=== PATIENT | female | born 1965 | race Caucasian/White ===

== ENCOUNTER → 2018-03-05 08:17 | Outpatient (CLI) | payer OTHER, SELFPAY ==
[2018-03-05 09:30] LABS: Alanine Aminotransferase 22 IU/L (9-52); Albumin 4.3 g/dL (3.5-5.0); Albumin Globulin Ratio 1.5 (1.0-2.8); Alkaline Phosphatase 44 U/L (38-126); Aspartate Aminotransferase 24 IU/L (14-36); BUN Creatinine Ratio 16.7 (6-22); Bilirubin Total 0.8 mg/dL (0.2-1.3); Blood Urea Nitrogen 10 mg/dL (7-17); Carbon Dioxide 30 mmol/L (22-32); Chloride 105 mmol/L (98-107); Cholesterol 197 mg/dL (140-199); Estimated Glomerular Filt Rate > 60.0 mL/min (>60); Globulin 2.8 g/dL (1.7-4.1); Glucose 83 mg/dL (70-100); HDL Cholesterol 74 mg/dL (40-60); HEMOLYSIS < 15 (0-50); LDL Cholesterol Calculated 113 mg/dL (<100); Potassium 4.3 mmol/L (3.4-5.1); Sodium 142 mmol/L (137-145); Total Protein 7.1 g/dL (6.3-8.2); Triglycerides 49 mg/dL (35-150)
[2018-03-05 09:43] LABS: Thyroid Stimulating Hormone 1.64 uIU/mL (0.47-4.68)
== END ==
PROVIDERS: Visit Provider Physician Assistant
DX: R41.840 Attention and concentration deficit (principal); Z82.49 Family history of ischemic heart disease and other diseases of the circulatory system; Z13.220 Encounter for screening for lipoid disorders; Z13.6 Encounter for screening for cardiovascular disorders
CPT/HCPCS: 36415; 80053; 80061; 84443

== ENCOUNTER → 2018-04-11 15:14 | Outpatient (CLI) | payer OTHER, SELFPAY ==
--- NOTE | 2018-04-11 | DI.MG.S_ITS ---
BILATERAL DIGITAL SCREENING MAMMOGRAM 3D/2D WITH CAD: 04/11/2018 CLINICAL: Routine screening. Comparison is made to exams dated: 09/29/2013 mammogram, 10/12/2011 mammogram, and 09/23/2007 mammogram - [facility]. The tissue of both breasts is heterogeneously dense. This may lower the sensitivity of mammography. Current study was also evaluated with a Computer Aided Detection (CAD) system. No significant masses, calcifications, or other findings are seen in either breast. There has been no significant interval change. IMPRESSION: NEGATIVE There is no mammographic evidence of malignancy. A 1 year screening mammogram is recommended. This exam was interpreted at Station ID: [id number]. NOTE: For mammograms, a report in lay terms will be sent to the patient. Approximately 15% of breast malignancies will not be visualized mammographically. In the management of a palpable breast mass, a negative mammogram must not discourage biopsy of a clinically suspicious lesion. Electronically Signed By: Joon mayo/jessika:04/14/2018 01:42:54 letter sent: Normal Exam ACR BI-RADS Category 1: Negative [id number]
== END ==
PROVIDERS: Family Provider Obstetrics & Gynecology; PCP Physician Assistant; Visit Provider Physician Assistant
DX: Z12.31 Encounter for screening mammogram for malignant neoplasm of breast (principal)
CPT/HCPCS: 77063; 77067

== ENCOUNTER 2018-11-05 13:14 | Emergency (ER) | payer OTHER, SELFPAY ==
[2018-11-05 13:19] VITALS: BP 132/89; PULSE 75; RESP 18; TEMP 36.3; O2SAT 99
--- NOTE | 2018-11-05 13:27 | DI.RAD.S_ITS ---
PROCEDURE: XR CHEST 1V INDICATIONS: chest pain TECHNIQUE: One view of the chest was acquired. COMPARISON: None. FINDINGS: Surgical changes and devices: None. Lungs and pleura: Lungs are clear. No pleural effusions or pneumothorax. Mediastinum: Mediastinal contours appear normal. Heart size is normal. Bones and chest wall: No suspicious bony lesions. Overlying soft tissues appear unremarkable. IMPRESSION: 1. No acute cardiopulmonary disease. Dictated by: Naresh Samano M.D. on 11/05/2018 at 13:54 Approved by: Naresh Samano M.D. on 11/05/2018 at 13:54
[2018-11-05 13:58] LABS: Add Manual Diff / Slide Review NO; Basophils Absolute Auto 0 /uL (0-100); Basophils Percent Auto 0.8 % (0-2); Eosinophils Absolute Auto 200 /uL (0-450); Hematocrit 42.8 % (36-46); Hemoglobin 14.1 g/dL (12.0-16.0); Lymphocytes Absolute Auto 1300 /uL (1100-4500); Lymphocytes Percent Auto 22.5 % (25-40); Mean Corpuscular HGB Conc 32.8 % (30-36); Mean Corpuscular Hemoglobin 29.3 PG (26-34); Mean Corpuscular Volume 89.2 fL (80-100); Monocytes Absolute Auto 400 /uL (0-900); Monocytes Percent Auto 6.4 % (3-14); Neutrophils Absolute Auto 3900 /uL (1500-7000); Neutrophils Percent Auto 67.3 % (50-75); Platelet Count 251 X10^3/uL (150-400); White Blood Cell Count 5.8 X10^3/uL (4.5-11.0)
[2018-11-05 14:06] LABS: Prothrombin Time 11.9 SECONDS (10.1-12.7)
[2018-11-05 14:08] LABS: PTT Partial Thromboplastin Tim 30 SECONDS (26.4-36.2)
[2018-11-05 14:12] LABS: Alanine Aminotransferase 13 IU/L (9-52); Albumin 4.9 g/dL (3.5-5.0); Albumin Globulin Ratio 1.5 (1.0-2.8); Alkaline Phosphatase 50 U/L (38-126); Aspartate Aminotransferase 25 IU/L (14-36); BUN Creatinine Ratio 18.3 (6-22); Bilirubin Total 0.8 mg/dL (0.2-1.3); Blood Urea Nitrogen 11 mg/dL (7-17); Calcium 9.9 mg/dL (8.4-10.2); Carbon Dioxide 29 mmol/L (22-32); Chloride 101 mmol/L (98-107); Creatine Kinase 61 U/L (30-135); Estimated Glomerular Filt Rate > 60.0 mL/min (>60); Globulin 3.3 g/dL (1.7-4.1); Glucose 105 mg/dL (70-100); HEMOLYSIS < 15 (0-50); Lipase 71 U/L (23-300); Potassium 3.9 mmol/L (3.4-5.1); Sodium 139 mmol/L (137-145); Total Protein 8.2 g/dL (6.3-8.2)
[2018-11-05 14:24] LABS: Troponin I < 0.012 ng/mL (0.01-0.034)
--- NOTE | 2018-11-05 16:52 | ED_ITS ---
HPI - Chest Pain General Chief Complaint: Chest Pain Stated Complaint: CHEST PAIN WARM SENSATION ABD PRESSURE BREAST AREA Time Seen by Provider: 11/05/18 13:30 Source: patient Mode of arrival: ambulatory Limitations: no limitations History of Present Illness HPI narrative: Patient complains of upper abdominal pressure that radiates into her low chest. She states that she thinks she has a hiatal hernia, which star radha after she did some heavy lifting some years ago. Patient states she feels this of the hernia has gotten worse. Patient indicates that the hernia is on her abdominal wall, and on clarification, is not aware of a herniation into her chest cavity. Patient denies any dyspnea, but does state that sometimes it feels as though she cannot take a full breath in, due to fullness in her lower chest and upper abdomen. Patient denies any cough or fever recently. She is active and denies any dyspnea or chest discomfort with exercise. She denies any nausea or diaphoresis. No lightheadedness. No other complaints at this time. Related Data Home Medications Medication Instructions Recorded Confirmed acetaminophen 325 mg tablet 325 mg PO PRN PRN 03/04/18 11/05/18 ibuprofen 200 mg tablet 200 mg PO PRN PRN 03/04/18 11/05/18 dextroamphetamine-amphetamine ER See Rx Instructions PO QAM 07/18/18 07/18/18 10 mg 24hr capsule,extend release doxycycline hyclate 100 mg PO BID 11/05/18 11/05/18 spironolactone 50 mg PO DAILY 11/05/18 11/05/18 tetracycline 500 mg PO BID 11/05/18 11/05/18 Allergies Allergy/AdvReac Type Severity Reaction Status Date / Time Sulfa (Sulfonamide Allergy Severe THROAT Verified 07/18/18 14:58 Antibiotics) SWELLING [SULFA (SULFONAMIDE ANTIBIOTICS)] Penicillins [PENICILLINS] Allergy Mild RASH Verified 07/18/18 14:58 Review of Systems Constitutional Denies chills, Denies fever(s), Denies lethargy and Denies weakness Eyes Denies change in vision, Denies eye discharge, Denies irritation and Denies loss of vision ENT Ears, Nose, Mouth, and Throat: Denies change in voice, Denies neck pain and Denies sore throat Cardiovascular Denies chest pain, Denies irregular heart rhythm, Denies lightheadedness, Denies palpitations, Denies dyspnea, Denies dyspnea on exertion and Denies orthopnea Comments: Chest pressure Respiratory Denies cough, Denies dyspnea, Denies dyspnea on exertion and Denies wheezing Gastrointestinal Gastrointestinal: Denies abdominal pain, Denies change in bowel habits, Denies diarrhea, Denies nausea and Denies vomiting Comments: Fullness and discomfort Genitourinary Denies hematuria, Denies flank pain, Denies urinary incontinence and Denies urinary urgency Musculoskeletal Denies neck pain Integumentary/Breasts Denies pruritus, Denies erythema, Denies rash and Denies wounds Neurologic Denies confusion, Denies loss of vision and Denies weakness Psychiatric Denies anxiety, Denies confusion, Denies depression, Denies homicidal ideation and Denies suicidal ideation Endocrine Denies palpitations Hematologic/Lymphatic Denies easy bruising Allergic/Immunologic Denies wheezing [facility] Medical History Allergic rhinitis (Chronic) Sciatica (Chronic) Compression fracture of body of thoracic vertebra (Resolved 1992) GERD (gastroesophageal reflux disease) (Resolved) History of ganglion cyst (Resolved) Shoulder pain (Resolved ~11/2014) Surgical History History of surgical removal of ganglion cyst (Resolved) Hx of shoulder surgery (Resolved 03/2015) Hx of tonsillectomy (Resolved) Social History Smoking Status: Former smoker Tobacco: How many years used: 10 second hand exposure: No alcohol intake: current (wine occasionally.) substance use type: does not use Social History Smoking Status: Former smoker Tobacco: How many years used: 10 second hand exposure: No alcohol intake: current (wine occasionally.) substance use type: does not use Exam Initial Vital Signs Initial Vital Signs: Vital Signs Temperature 97.3 F L 11/05/18 13:19 Pulse Rate 75 11/05/18 13:19 Respiratory Rate 18 11/05/18 13:19 Blood Pressure 132/89 11/05/18 13:19 Pulse Oximetry 99 11/05/18 13:19 Const General: cooperative and well developed Nutritional Appearance: well nourished Orientation: alert, awake, oriented x3 and not confused HENLA Head: normocephalic and atraumatic Ears: external ears normal Nose: external nose normal and No nasal discharge Face and sinus: face symmetric and No dry mucous membranes Mouth: oral mucosae normal and moist mucous membranes Teeth and gingiva: dentition normal Eyes General: appearance normal, both eyes and all related structures Eyelids: eyelids normal Conjunctivae: conjunctivae normal Sclera: sclerae normal Pupils: PERRL EOM: EOM intact bilaterally Neck Neck: normal visual inspection, trachea midline, No lymphadenopathy, No midline deformity and No JVD Lymphatic: No lymphedema Chest Chest: normal inspection of the chest Resp Effort & Inspection: normal respiratory effort, able to speak in complete sentences, no respiratory distress and no use of accessory muscles Auscultation: clear to auscultation bilaterally, no rales, no rhonchi and no wheezes Cardio Rate: regular rate Rhythm: regular rhythm Heart Sounds: no click, no gallops, no murmurs and no rubs Pulses: normal peripheral pulses GI Inspection: non-distended Palpation: soft, no hepatosplenomegaly, No guarding, No pulsatile mass and te nder (Mild, over ventral abdominal hernia in epigastric region) Auscultation: normal bowel sounds Other: Patient has a moderately sized, fully reducible ventral abdominal hernia in the midline epigastric area. Distension in the hernia area completely resolves with supine position. Back/Spine/Pelvis Back: No CVA tenderness Cervical Spine: cervical ROM normal and No pain with cervical ROM Thoracic/Lumbar Spine: thoracic and lumbar spine normal to inspection Skin General: no rashes or lesions noted, No jaundice and No petechiae Neuro General: alert, oriented x3, gait normal and no focal motor deficits Speech: speech normal Extrem General: full ROM, no clubbing, cyanosis or edema, no pedal edema and no calf tenderness Psych Appearance: well kempt Mental Status: mental status grossly normal Attitude: cooperative Thought Content: normal and suicidality Judgment: judgment good Course Course Narrative: Due to patient's complaint of chest discomfort, she was worked up with labs, including cardiac enzymes, as well as EKG. All of these were found to be unremarkable. I did send the patient for a chest x-ray to evaluate for the possibility of hiatal hernia, though I felt most likely, the patient had the wrong terminology for her ventral hernia. The patient was found have a normal chest x-ray, showing no evidence of a hiatal hernia. I have discussed with her both types of hernias, and we have discussed conservative management versus surgical repair of her hernia. Patient states she has seen a surgeon previously to discuss repair, but then decided against it. However, she states that now she is interested in potentially having the hernia repaired, so I have given her general surgery follow-up. No emergent condition has been identified, and I feel the patient is stable for discharge home. We have discussed the usual indications for return. Orders Ordered: ED Orders 11/05/18 13:19 EKG-12 Lead Stat 11/05/18 13:27 XR chest 1V Stat 11/05/18 13:51 Complete Blood Count AUTO DIFF Stat Comprehensive Metabolic Panel Stat Lipase Stat Partial Thromboplastin Time Stat Prothrombin Time INR Stat Troponin & CK Cardiac Panel Stat Vital Signs - 8 hr 11/05/18 13:19 Temperature 97.3 F L Pulse Rate 75 Respiratory Rate 18 Blood Pressure 132/89 Pulse Oximetry 99 MDM - Chest Pain Medical Records Data Attestation: I reviewed the patient's medical records. Lab Data Attestation: I reviewed the patient's lab results. Result diagrams: 11/05/18 13:51 11/05/18 13:51 Lab Results 11/05/18 11/05/18 11/05/18 Range/Units 13:51 13:51 13:51 WBC 5.8 (4.5-11.0) X10^3/uL RBC 4.80 (4.0-5.2) X10^6/uL Hgb 14.1 (12.0-16.0) g/dL Hct 42.8 (36-46) % MCV 89.2 (80-100) fL MCH 29.3 (26-34) PG MCHC 32.8 (30-36) % RDW 13.0 (11.6-14.8) % Plt Count 251 (150-400) X10^3/uL Neut % (Auto) 67.3 (50-75) % Lymph % (Auto) 22.5 L (25-40) % Hodgeman % (Auto) 6.4 (3-14) % Eos % (Auto) 3.0 (2-4) % Baso % (Auto) 0.8 (0-2) % Neut # (Auto) 3900 (0505-1778) /uL Lymph # (Auto) 1300 (0338-5835) /uL Hodgeman # (Auto) 400 (0-900) /uL Eos # (Auto) 200 (0-450) /uL Baso # (Auto) 0 (0-100) /uL PT 11.9 (10.1-12.7) SECONDS INR 1.0 (0.9-1.3) APTT 30 (26.4-36.2) SECONDS Sodium 139 (137-145) mmol/L Potassium 3.9 (3.4-5.1) mmol/L Chloride 101 (98-107) mmol/L Carbon Dioxide 29 (22-32) mmol/L BUN 11 (7-17) mg/dL Creatinine 0.60 (0.52-1.04) mg/dL Estimated GFR > 60.0 (>60) mL/min BUN/Creatinine Ratio 18.3 (6-22) Glucose 105 H (70-100) mg/dL Calcium 9.9 (8.4-10.2) mg/dL Total Bilirubin 0.8 (0.2-1.3) mg/dL AST 25 (14-36) IU/L ALT 13 (9-52) IU/L Alkaline Phosphatase 50 (38-126) U/L Total Creatine Kinase 61 (30-135) U/L CK-MB (CK-2) TNP CK-MB (CK-2) Rel Index TNP Troponin I < 0.012 (0.01-0.034) ng/mL Total Protein 8.2 (6.3-8.2) g/dL Albumin 4.9 (3.5-5.0) g/dL Globulin 3.3 (1.7-4.1) g/dL Albumin/Globulin Ratio 1.5 (1.0-2.8) Lipase 71 (23-300) U/L Imaging Data Chest x-ray: Attestation: I personally reviewed and interpreted this imaging study as follows: My impression: Negative Radiologist's impression: [address] [address] XRay Report Signed Patient: Sarah Landon LMR#: [id number] : 1965Acct:[id number] Age/Sex: 53 / FDate of Service: 11/05/18 Loc: ED Accession Number: [id number] Procedure: XR chest 1V Ordering Provider: Shalini Cowan MD PROCEDURE: XR CHEST 1V INDICATIONS: chest pain TECHNIQUE: One view of the chest was acquired. COMPARISON: None. FINDINGS: Surgical changes and devices: None. Lungs and pleura: Lungs are clear. No pleural effusions or pneumothorax. Mediastinum: Mediastinal contours appear normal. Heart size is normal. Bones and chest wall: No suspicious bony lesions. Overlying soft tissues appear unremarkable. IMPRESSION: 1. No acute cardiopulmonary disease. Dictated by: Naresh Samano M.D. on 11/05/2018 at 13:54 Approved by: Naresh Samano M.D. on 11/05/2018 at 13:54 ECG Data Attestation: I personally reviewed and interpreted this ECG as follows: (See below) Interpretation: Twelve lead EKG performed November 13, 2018 at 1:25 p.m., as follows: Regular ventricular rhythm with a rate of [address] interval 138 millisecond QRS duration 91 milliseconds QTC interval [address] segment elevations or depressions T-waves are upright in appropriate leads Interpretation: Normal sinus rhythm; no signs of acute ischemia; normal EKG as interpreted by ED MD Discharge Plan Departure Patient Disposition: Home Clinical Impression: Abdominal wall hernia Discharge Date/Time: 11/05/18 18:14 Interventions: ED Discharge Assessment Last Done: 11/05/18 18:13 Instructions: DI for Ventral Hernia Activity Restrictions/Additional Instructions: Your x-ray does not show a hiatal hernia, and on your exam, your findings are consistent with a ventral or abdominal wall hernia. Prescriptions: No Action acetaminophen [Tylenol] 325 mg Tablet 325 mg PO PRN PRN (Reason: pain or fever) RF: 0 ibuprofen [Advil] 200 mg Tablet 200 mg PO PRN PRN (Reason: pain) RF: 0 dextroamphetamine-amphetamine 10 mg capsule,extended release 24hr See Patient Comments PO QAM RF: 0 tetracycline 500 mg capsule 500 mg PO BID RF: 0 doxycycline hyclate 100 mg capsule 100 mg PO BID RF: 0 spironolactone 50 mg tablet 50 mg PO DAILY RF: 0 Referrals: [facility] [Provider Group] Lynn Vicente PA-C [Primary Care Provider] -
[2018-11-05 18:13] VITALS: BP 119/91; PULSE 77; RESP 18; O2SAT 100
== END 2018-11-05 18:14 | disposition home or self-care (01) ==
PROVIDERS: Emergency Provider Emergency Medicine; Family Provider Obstetrics & Gynecology; PCP Physician Assistant
DX: K43.9 Ventral hernia without obstruction or gangrene (principal); R07.89 Other chest pain
CPT/HCPCS: 36415; 71045; 80053; 82550; 83690; 84484; 85025; 85610; 85730; 93005; 93010; 99283; 99285

== ENCOUNTER → 2020-01-01 16:34 | Outpatient (CLI) | payer OTHER, SELFPAY ==
--- NOTE | 2020-01-01 16:36 | DI.RAD.S_ITS ---
PROCEDURE: XR LUMBAR SPINE 2-3V INDICATIONS: LOWER BACK PAIN TECHNIQUE: 3 views of the lumbar spine were acquired. COMPARISON: Lumbar spine MRI dated 06/29/2008 FINDINGS: Bones: 5 [id number] vertebrae are present. There is trace levoconvex curvature of the lower lumbar spine centered at the L4 level. There is grade 1-2 anterolisthesis of L4 on L5 with associated moderate disc space narrowing, which has progressed when compared to the prior MRI from 06/29/2008. No definite spondylolysis is seen. Moderate to severe degenerative facet changes are seen at L4-5 and L5-S1. Mild disc space narrowing is seen at L5-S1. No vertebral body compression fractures. No suspicious bony lesions. Soft tissues: Overlying bowel gas pattern is normal. No suspicious soft tissue calcifications. IMPRESSION: Grade 1-2 anterolisthesis of L4 on L5 secondary to severe facet hypertrophy, which has progressed when compared to the prior MRI from 06/29/2008. Additional multilevel degenerative changes as described above. Dictated by: Weston Sanchez M.D. on 01/02/2020 at 9:14 Approved by: Weston Sanchez M.D. on 01/02/2020 at 9:19
--- NOTE | 2020-01-01 16:36 | DI.RAD.S_ITS ---
PROCEDURE: XR SACROILIAC JOINT MIN 3V INDICATIONS: LOWER BACK PAIN TECHNIQUE: 3 views of the sacroiliac joints were acquired. COMPARISON: None. FINDINGS: Bones: No bony erosions or ankylosis. Mild degenerative osteoarthrosis is present in the sacroiliac joints bilaterally with subchondral sclerosis and formation of small marginal osteophytes. No suspicious bony lesions. No fractures. Portions of the sacrum are obscured by overlying bowel gas. Mild degenerative changes are present at the pubic symphysis. Soft tissues: Overlying bowel gas pattern is normal. No suspicious soft tissue densities. 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 Dictated by: Weston Sanchez M.D. on 01/02/2020 at 9:11 Approved by: Weston Sanchez M.D. on 01/02/2020 at 9:13
== END ==
PROVIDERS: Family Provider Obstetrics & Gynecology; PCP Physician Assistant; Referring Provider Physician Assistant; Visit Provider Physician Assistant
DX: M54.5 Low back pain (principal); M47.818 Spondylosis without myelopathy or radiculopathy, sacral and sacrococcygeal region; M47.817 Spondylosis without myelopathy or radiculopathy, lumbosacral region; M47.816 Spondylosis without myelopathy or radiculopathy, lumbar region; M43.16 Spondylolisthesis, lumbar region; M43.9 Deforming dorsopathy, unspecified; Z91.81 History of falling
CPT/HCPCS: 72100; 72202

== ENCOUNTER → 2020-01-28 07:33 | Outpatient (CLI) | payer OTHER, SELFPAY ==
--- NOTE | 2020-01-28 | DI.MRI.S_ITS ---
PROCEDURE: MR LUMBAR SPINE WO CON INDICATIONS: Abnormal findings on diagnostic imaging of other p TECHNIQUE: Noncontrast sagittal T1 spin echo and T2 fast echo, sagittal STIR, axial T1 and T2 fast spin echo through the lumbar spine. In cases with scoliosis, additional coronal T2 fast spin echo may be performed. COMPARISON: [facility], CR, XR LUMBAR SPINE 2-3V, 01/01/2020, 16:46. [facility], MR, L-SPINE WITHOUT CONTRAST, 06/29/2008, 19:31. FINDINGS: Image quality: Excellent. Alignment and Curvature: Grade 1 degenerative anterolisthesis of L4 on L5 measures 7 mm. The other vertebral bodies are normally aligned. Bone Marrow: Marrow is of normal overall signal. No acute vertebral body compression fractures. Spinal Cord: Conus medullaris terminates at the bottom of L1 level. Visualized cord demonstrates normal signal and size. Paraspinous Soft Tissues: No paravertebral masses. T12-L1: No canal stenosis or foraminal stenosis. L1-L2: Normal appearance. L2-L3: Mild disc bulge. Mild facet hypertrophy. No canal stenosis or foraminal stenosis. L3-L4: Minimal disc bulge. Facet hypertrophy. No canal stenosis or foraminal stenosis. L4-L5: Grade 1 anterolisthesis of L4 on L5 measuring 7 mm. Right posterior annulus tear. Diffuse disc bulge. Marked bilateral facet hypertrophy. Moderate central canal stenosis. Severe right lateral recess stenosis. Moderate left lateral recess stenosis. [id number] bilateral foraminal narrowing with mild flattening deformity on the inferior aspect of the bilateral L4 nerve root sleeves. L5-S1: Posterior annulus tear plus disc bulge. Prominent bilateral facet hypertrophy. Mild canal stenosis. Mild to moderate right foraminal narrowing and moderate left foraminal narrowing with flattening deformity on the inferior aspect of the L5 nerve root sleeves. IMPRESSION: 1. At L4-L5, there is marked bilateral facet hypertrophy. There is grade 1 anterolisthesis of L4 on L5. There is right posterior annulus tear. There is moderate central canal stenosis, severe right lateral recess stenosis, and moderate left lateral recess stenosis. 2. Mild multifactorial canal stenosis at L5-S1. 3. Foraminal narrowing at L4-L5 and L5-S1 as described above. Dictated by: Nas Perdue M.D. on 01/28/2020 at 8:41 Approved by: Nas Perdue M.D. on 01/28/2020 at 8:48
== END ==
PROVIDERS: Family Provider Obstetrics & Gynecology; PCP Physician Assistant; Referring Provider Physician Assistant; Visit Provider Physician Assistant
DX: R93.7 Abnormal findings on diagnostic imaging of other parts of musculoskeletal system (principal); M43.16 Spondylolisthesis, lumbar region; M48.061 Spinal stenosis, lumbar region without neurogenic claudication; M48.07 Spinal stenosis, lumbosacral region; M53.86 Other specified dorsopathies, lumbar region; M54.5 Low back pain
CPT/HCPCS: 72148

== ENCOUNTER 2020-07-15 15:35 | Emergency (ER) | payer OTHER, SELFPAY ==
[2020-07-15 15:41] VITALS: BP 144/89; PULSE 79; RESP 14; TEMP 36.7; O2SAT 98; BMI 20.9
[2020-07-15 16:14] LABS: COVID19 -Nasal RAPID Negative (Negative)
--- NOTE | 2020-07-15 17:49 | ED.URI ---
HPI - URI/Sore Throat General Chief Complaint: Upper Respiratory Symptoms Stated Complaint: wants covid test, thinks exposed Time Seen by Provider: 07/15/20 17:25 Source: patient Mode of arrival: Ambulatory Limitations: no limitations History of Present Illness HPI Narrative: This is a 55-year-old female who comes to the emergency department requesting COVID test. She states that she has had potential exposure she works on the [employer] system. Her son has had 2 known COVID exposures. Patient states that she is unsure if she is truly having symptoms or fits ?the power of suggestion.? She states she may have had some mild sore throat. She denies any fevers, no loss of taste or smell, no chest pain, no shortness of breath, no other GI or urinary symptoms. Patient states no medical issues otherwise. Related Data Home Medications Medication Instructions Recorded Confirmed acetaminophen 325 mg tablet 325 mg PO PRN PRN 03/04/18 07/22/19 ibuprofen 200 mg tablet 200 mg PO PRN PRN 03/04/18 07/22/19 spironolactone 50 mg PO DAILY 11/05/18 07/22/19 Previous Rx's Medication Instructions Recorded dextroamphetamine 10 mg 10 mg PO DAILY #30 cap 07/22/19 capsule,extended release Allergies Allergy/AdvReac Type Severity Reaction Status Date / Time Sulfa (Sulfonamide Allergy Severe THROAT Verified 07/15/20 15:51 Antibiotics) SWELLING [SULFA (SULFONAMIDE ANTIBIOTICS)] Penicillins [PENICILLINS] Allergy Mild RASH Verified 07/15/20 15:51 Review of Systems Review of Systems ROS Unobtainable: All systems reviewed & are unremarkable except as noted in HPI and below Patient History Medical History (Updated 07/15/20 @ 17:53 by Kyara Merchant DO) Allergic rhinitis Compression fracture of body of thoracic vertebra (1992) GERD (gastroesophageal reflux disease) History of ganglion cyst Sciatica Shoulder pain (~11/2014) Surgical History History of surgical removal of ganglion cyst Hx of shoulder surgery (03/2015) Hx of tonsillectomy Social History Smoking Status: Former smoker Tobacco: How many years used: 10 second hand exposure: No alcohol intake: current (wine occasionally.) substance use type: does not use Smoking Status: Former smoker alcohol intake frequency: holidays/special occasions only Substance Use Type: does not use Exam Narrative Exam Narrative: GEN: well nourished, well appearing female, alert and oriented x 3, patient appears to be in mild distress. Patient is ambulating in room. HEENT: Atraumatic, pupils are equal round reactive to light, extraocular movements are intact, nares are clear, Throat is clear without any exudates, erythema, tonsillar enlargement or uvular deviation HEART: Regular rate and rhythm without murmur, clicks, rubs. LUNGS:Lungs clear to auscultation, no wheezes, rales, crackles, chest moves symmetrically ABD:bowel sounds normal, soft, non-tender, no guarding, rebound, rigidity, no masses noted, no hepatosplenomegaly MSCL: ull range of motion, normal gait NEURO:CN 2-12 intact, sensation normal Initial Vital Signs Initial Vital Signs: Vital Signs Temperature 98.1 F 07/15/20 15:41 Pulse Rate 79 07/15/20 15:41 Respiratory Rate 14 07/15/20 15:41 Blood Pressure 144/89 H 07/15/20 15:41 Pulse Oximetry 98 07/15/20 15:41 Course Orders Ordered: ED Orders 07/15/20 15:44 COVID19 Stat Vital Signs Vital signs: Vital Signs - 8 hr 07/15/20 15:41 Temperature 98.1 F Pulse Rate 79 Respiratory Rate 14 Blood Pressure 144/89 H Pulse Oximetry 98 MDM - URI/Sore Throat Lab Data Labs: Lab Results 07/15/20 Range/Units 15:44 SARS-CoV-2 (PCR) Negative (Negative) [facility] Narrative Medical decision making narrative: 55-year-old female comes in with complaint of COVID exposure. Her son had 2 definitive positive exposures. She had 1 proximally week ago had negative COVID testing afterwards and also works on the [employer] system so likely has exposures. Patient swab is negative. She states she is not even sure she really has symptoms at this time. Discharge Plan Departure Patient Disposition: Home Clinical Impression: Upper respiratory disease Instructions: Can COVID-19 be prevented? Activity Restrictions/Additional Instructions: Your covid swab today was negative. Depending on your exposure time, there is always potential for a false negative. *What to do: * per recommendations from the CDC and the [facility] Department of Health * stay home except to get medical care. Restrict activities outside your home, except for getting medical care. Do not go to work, school, or public areas. Avoid using public transportation, ride sharing, or taxis. * separate yourself from other people in your home. * call ahead before visiting your doctor * Wear a face mask * Cover your coughs and sneezes * Clean your hands often * Avoid sharing household items * Clean all high-touch services every day * Monitor your symptoms and seek prompt medical attention if your illness is worsening, particularly with difficulty in breathing. Discussed continuing home isolation * for individuals with symptoms who are confirmed or suspected cases of COVID-19 and are directed to care for themselves at home, discontinue home isolation under the following conditions: 1. At least 72 hours have passed since recovery, defined as resolution of fever without the use of fever reducing medications, and improvement in respiratory symptoms (cough, shortness of breath) AND, 2. At least 7 days have passed since symptoms 1st appeared Individuals with laboratory confirmed COVID-19 who have not had any symptoms may discontinue home isolation when at least 7 days have passed since the date of their 1st COVID-19 diagnostic test and have had no subsequent illness Prescriptions: No Action acetaminophen [Tylenol] 325 mg Tablet 325 mg PO PRN PRN (Reason: pain or fever) RF: 0 ibuprofen [Advil] 200 mg Tablet 200 mg PO PRN PRN (Reason: pain) RF: 0 dextroamphetamine 10 mg capsule, extended release 10 mg PO DAILY Qty: 30 RF: 0 spironolactone 50 mg tablet 50 mg PO DAILY RF: 0 Referrals: Lynn Vicente PA-C [Primary Care Provider] -
== END 2020-07-15 17:57 | disposition home or self-care (01) ==
PROVIDERS: Emergency Provider Emergency Medicine; Family Provider Obstetrics & Gynecology; PCP Physician Assistant
DX: J06.9 Acute upper respiratory infection, unspecified (principal); Z20.822 Contact with and (suspected) exposure to COVID-19
CPT/HCPCS: 87635; 99281; 99282; C9803

== ENCOUNTER → 2021-06-28 18:17 | Outpatient (CLI) | payer OTHER, SELFPAY ==
--- NOTE | 2021-06-28 18:23 | DI.MRI.S_ITS ---
PROCEDURE: MR LUMBAR SPINE WO CON INDICATIONS: LOWER LUMBAR PAIN TECHNIQUE: Noncontrast sagittal T1 spin echo and T2 fast echo, sagittal STIR, axial T1 and T2 fast spin echo through the lumbar spine. In cases with scoliosis, additional coronal T2 fast spin echo may be performed. COMPARISON: [facility], MR, MR LUMBAR SPINE WO CON, 01/28/2020, 7:50. [facility], MR, L-SPINE WITHOUT CONTRAST, 06/29/2008, 19:31. [facility], CR, XR LUMBAR SPINE MIN 4V, 06/28/2021, 18:41. FINDINGS: Image quality: Excellent. Alignment and Curvature: There is grade 1-2 L4-L5 degenerative anterolisthesis. Bone Marrow: Modic type 1 reactive endplate changes noted adjacent to the L5-S1 disc. No acute vertebral body compression fractures. Spinal Cord: Conus medullaris terminates at the L1 level. Visualized cord demonstrates normal signal and size. Paraspinous Soft Tissues: No paravertebral masses. T12-L1: Normal appearance. L1-L2: Normal appearance. L2-L3: Loss of disc signal. Mild, diffuse disc bulge. No central stenosis. Mild bilateral neural foraminal narrowing. No neural compression. L3-L4: Loss of disc signal. Mild, diffuse disc bulge. Mild right and [id number] left facet hypertrophy. Mild narrowing of the central canal. Mild bilateral neural foraminal narrowing. No neural compression. L4-L5: Loss of disc signal and height. Mild, diffuse disc bulge. Severe bilateral facet hypertrophy. Moderate narrowing of the central canal. Moderate to severe right and moderate left neural foraminal narrowing with slight compression of the exiting right L4 nerve root. L5-S1: Loss of disc signal and height. Mild, diffuse disc bulge. Moderate bilateral facet hypertrophy. No central stenosis. Severe bilateral neural foraminal narrowing with compression of the exiting bilateral L5 nerve roots. IMPRESSION: 1. Grade 1-2 L4-L5 degenerative spondylolisthesis. 2. Multilevel degenerative disc disease. 3. Multilevel facet arthropathy. 4. No severe central canal narrowing. 5. Severe bilateral L5-S1 neural foraminal narrowing with compression of the exiting bilateral L5 nerve roots. Moderate to severe right L4-L5 neural foraminal narrowing with slight compression of the exiting right L4 nerve root. Dictated by: Blessing Lee MD, PhD on 06/29/2021 at 9:09 Approved by: Blessing Lee MD, PhD on 06/29/2021 at 9:14
--- NOTE | 2021-06-28 18:24 | DI.RAD.S_ITS ---
PROCEDURE: XR LUMBAR SPINE MIN 4V INDICATIONS: LOWER LUMBAR PAIN TECHNIQUE: 5 views of the lumbar spine were acquired, including bilateral oblique views. COMPARISON: [facility], CT, ABDOMEN/PELVIS WITH CONTRAST, 10/01/2007, 8:43. [facility], MR, MR LUMBAR SPINE WO CON, 01/28/2020, 7:50. [facility], CR, XR LUMBAR SPINE 2-3V, 01/01/2020, 16:46. FINDINGS: Bones: 5 nonrib-bearing vertebrae are present. There is grade 1 anterolisthesis of L4 on L5. Severe disc space narrowing is present L4-5, L5-S1. Moderate to severe foraminal narrowing is present at L5-S1. No vertebral body compression fractures. No suspicious bony lesions. Soft tissues: Overlying bowel gas pattern is normal. No suspicious soft tissue calcifications. Oblique images: No pars defects. IMPRESSION: Unchanged appearance of grade 1 anterolisthesis of L4 on L5. Degenerative changes remain most prominent L5-S1, unchanged. Dictated by: Ember Conklin M.D. on 06/28/2021 at 19:46 Approved by: Ember Conklin M.D. on 06/28/2021 at 19:53
== END ==
PROVIDERS: Family Provider Obstetrics & Gynecology; Referring Provider Orthopaedic Surgery Orthopaedic Surgery of the Spine; Visit Provider Orthopaedic Surgery Orthopaedic Surgery of the Spine
DX: M43.16 Spondylolisthesis, lumbar region (principal); M51.36 Other intervertebral disc degeneration, lumbar region; M51.37 Other intervertebral disc degeneration, lumbosacral region; M47.816 Spondylosis without myelopathy or radiculopathy, lumbar region; M47.817 Spondylosis without myelopathy or radiculopathy, lumbosacral region; M48.07 Spinal stenosis, lumbosacral region; M54.32 Sciatica, left side
CPT/HCPCS: 72110; 72148

== ENCOUNTER → 2022-05-16 16:59 | Outpatient (CLI) | payer OTHER, SELFPAY | PROVIDERS: Family Provider Obstetrics & Gynecology; Visit Provider Physician Assistant Medical | DX: N89.8 Other specified noninflammatory disorders of vagina (principal); R30.0 Dysuria | CPT/HCPCS: 87086; 87210 ==

== ENCOUNTER → 2022-12-10 09:46 | Outpatient (CLI) | payer OTHER, SELFPAY | PROVIDERS: Family Provider Obstetrics & Gynecology; Visit Provider Nurse Practitioner Family | DX: J02.9 Acute pharyngitis, unspecified (principal) | CPT/HCPCS: 87070 ==

== ENCOUNTER 2023-07-23 22:31 | Emergency (ER) | payer OTHER, SELFPAY ==
[2023-07-23 22:40] VITALS: BP 129/88; PULSE 76; RESP 18; TEMP 36.9; O2SAT 98; BMI 20.9
--- NOTE | 2023-07-23 22:45 | DI.RAD.S_ITS ---
PROCEDURE: XR ANKLE RT MIN 3V INDICATIONS: Injured her right ankle coming down stairs today at work TECHNIQUE: 3 views of the ankle were acquired. COMPARISON: None. FINDINGS: Bones: No fractures or dislocations. Ankle mortise is normally aligned. Minor irregularity along the dorsal aspect of the proximal navicular at the talonavicular articulation. No overlying soft tissue swelling. No suspicious bony lesions. Soft tissues: No tibiotalar joint effusion. Achilles tendon appears normal. IMPRESSION: No visible acute fracture. Probable chronic irregularity at the dorsal talonavicular articulation. Correlate with point tenderness to exclude acute process. Dictated by: Yoly May M.D. on 07/23/2023 at 23:46 Approved by: Yoly May M.D. on 07/23/2023 at 23:47
--- NOTE | 2023-07-24 00:30 | ED.LOWEXIN ---
HPI - Extremity Injury (Lower) General Chief Complaint: Extremity Injury, Lower Stated Complaint: rt ankle injury Time Seen by Provider: 07/24/23 00:30 Source: patient and family Mode of arrival: Wheelchair History of Present Illness HPI Narrative: Patient is a healthy 58-year-old female who presents today with right ankle and foot pain. She reports that she missed the last stair twisting her right ankle injury happened around 330 this afternoon. She works on the [employer]. She has not attempted to put weight on it. She denies any other injury no knee pain. She did take some ibuprofen at time of incident feels like it might be wearing off. Related Data Previous Rx's Medication Instructions Recorded fluconazole 150 mg tablet 150 mg PO DAILY #5 tabs 05/16/22 (Diflucan) triamcinolone acetonide 0.5 % 1 applic topical TID #15 grams 06/24/22 topical cream benzonatate 100 mg capsule 100 mg PO BID PRN cough #20 caps 12/10/22 fluticasone propionate 50 1 spray intranasal Q12H #16 grams 12/10/22 mcg/actuation nasal spray,suspension (Flonase Allergy Relief) Allergies Allergy/AdvReac Type Severity Reaction Status Date / Time Sulfa (Sulfonamide Allergy Severe THROAT Verified 12/10/22 09:20 Antibiotics) SWELLING [SULFA (SULFONAMIDE ANTIBIOTICS)] Penicillins [PENICILLINS] Allergy Mild RASH Verified 12/10/22 09:20 Patient History Medical History Allergic rhinitis Compression fracture of body of thoracic vertebra (1992) GERD (gastroesophageal reflux disease) History of ganglion cyst Sciatica Shoulder pain (~11/2014) Surgical History History of surgical removal of ganglion cyst Hx of shoulder surgery (03/2015) Hx of tonsillectomy Hx of tubal ligation Social History marital status: unknown household members: children occupational status: employed Smoking Status: Former smoker Tobacco: How many years used: 10 second hand exposure: No alcohol intake: current (wine occasionally.) substance use type: does not use Smoking Status: Former smoker alcohol intake frequency: holidays/special occasions only Substance Use Type: does not use Exam Initial Vital Signs Initial Vital Signs: Vital Signs Temperature 98.4 F 07/23/23 22:40 Pulse Rate 76 07/23/23 22:40 Respiratory Rate 18 07/23/23 22:40 Blood Pressure 129/88 07/23/23 22:40 Pulse Oximetry 98 07/23/23 22:40 Oxygen Delivery Method Room Air 07/23/23 22:40 GENERAL: Well-appearing, well-nourished and in no acute distress. CARDIOVASCULAR: peripheral pulses in tact, cap refill <2 sec RESPIRATORY: No respiratory distress, speaks in full sentences without difficulty EXTREMITIES: Normal range of motion, no clubbing or edema. Neurovascularly intact Right ankle some mild lateral contusion in the mid foot no significant malleoli swelling Achilles intact distal pedal pulse intact knee is stable NEUROLOGICAL: Cranial nerves II through XII grossly intact. Normal gait and speech. SKIN: Warm, dry, no petechiae, no rashes or lesions. Course Orders Ordered: ED Orders 07/23/23 22:45 XR ankle RT min 3V Stat Vital Signs Vital signs: Vital Signs - 8 hr 07/23/23 22:40 07/24/23 00:34 07/24/23 00:39 Temperature 98.4 F Pulse Rate 76 65 Respiratory Rate 18 17 Blood Pressure 129/88 129/76 Pulse Oximetry 98 99 Oxygen Delivery Method Room Air Room Air Room Air MDM - Extremity Injury (Lower) Imaging Data Extremity x-ray #1: Radiologist's Impression: PROCEDURE: XR ANKLE RT MIN 3V INDICATIONS: Injured her right ankle coming down stairs today at work TECHNIQUE: 3 views of the ankle were acquired. COMPARISON: None. FINDINGS: Bones: No fractures or dislocations. Ankle mortise is normally aligned. Minor irregularity along the dorsal aspect of the proximal navicular at the talonavicular articulation. No overlying soft tissue swelling. No suspicious bony lesions. Soft tissues: No tibiotalar joint effusion. Achilles tendon appears normal. IMPRESSION: No visible acute fracture. Probable chronic irregularity at the dorsal talonavicular articulation. Correlate with point tenderness to exclude acute process. Dictated by: Yoly May M.D. on 07/23/2023 at 23:46 Approved by: Yoly May M.D. on 07/23/2023 at 23:47 [facility] Narrative Medical decision making narrative: Patient is 58-year-old female presents today with right ankle pain and injury while at work. X-ray has been reviewed and is negative. She is able to weightbear now. At this time supportive care only. She is not requiring crutches at this time Discharge Plan Departure Patient Disposition: Home Clinical Impression: Mild sprain of right ankle Instructions: DI for Ankle Sprain Activity Restrictions/Additional Instructions: *You have been diagnosed with right ankle sprain *What to do: Increase activity as tolerated. May weightbear as tolerated. Elevate and ice as needed *Continue to take medications as directed Motrin 600 mg every 6 hours if needed for [id number] pain Tylenol 1000 mg every 6 hours if needed for sxgi-cj-phktffhl pain *Follow up with your primary care provider in 2-3 days or call [phone] *Return to ER if you should have increasing pain swelling numbness tingling [or] any new, worsening or concerning symptoms Prescriptions: No Action triamcinolone acetonide 0.5 % cream 1 applic topical TID Qty: 15 0RF benzonatate 100 mg capsule 100 mg PO BID PRN (Reason: cough) Qty: 20 0RF fluticasone propionate [Flonase Allergy Relief] 50 mcg/actuation spray,suspension 1 spray intranasal Q12H Qty: 16 0RF Rx Instructions: administer into each nostril fluconazole [Diflucan] 150 mg tablet 150 mg PO DAILY Qty: 5 0RF Referrals: Miscellaneous,Doctor, MD [Primary Care Provider] - Stand Alone Forms: Patient Portal/API
[2023-07-24 00:34] VITALS: BP 129/76; PULSE 65; RESP 17; O2SAT 99
== END 2023-07-24 00:41 | disposition home or self-care (01) ==
PROVIDERS: Emergency Provider Emergency Medicine; Family Provider Obstetrics & Gynecology
DX: S93.401A Sprain of unspecified ligament of right ankle, initial encounter (principal); X50.1XXA Overexertion from prolonged static or awkward postures, initial encounter
CPT/HCPCS: 73610; 99283

== ENCOUNTER → 2024-07-02 11:11 | Outpatient (CLI) | payer OTHER, SELFPAY ==
[2024-07-02 11:58] LABS: Influenza A - CEPHEID Flu A POSITIVE (NEGATIVE); Influenza B - CEPHEID Flu B NEGATIVE (NEGATIVE); Respiratory Syncytial Virus Negative (Negative)
[2024-07-02 11:59] LABS: COVID-19 CEPHEID 4-PLEX PCR Negative (Negative)
== END ==
PROVIDERS: Family Provider Obstetrics & Gynecology; PCP Family Medicine; Visit Provider Physician Assistant
DX: R05.1 Acute cough (principal)
CPT/HCPCS: 0241U

== ENCOUNTER → 2024-07-17 15:52 | Outpatient (CLI) | payer OTHER, SELFPAY ==
--- NOTE | 2024-07-17 15:53 | DI.RAD.S_ITS ---
PROCEDURE: XR CHEST 2V INDICATIONS: persistent cough, hx of flu TECHNIQUE: 2 views of the chest were acquired. COMPARISON: [facility], CR, XR CHEST 1V, 11/05/2018, 13:30. FINDINGS: Surgical changes and devices: None. Lungs and pleura: Lungs are clear. No pleural effusions or pneumothorax. Peribronchial cuffing. Mediastinum: Mediastinal contours are normal. Heart size is normal. Bones and chest wall: No suspicious bony abnormalities. Soft tissues appear unremarkable. IMPRESSION: Peribronchial cuffing, typically indicating infectious or inflammatory bronchitis. Dictated by: Manish Vaughan M.D. on 07/18/2024 at 13:15 Approved by: Manish Vaughan M.D. on 07/18/2024 at 13:16
== END ==
PROVIDERS: Family Provider Obstetrics & Gynecology; PCP Family Medicine; Referring Provider Family Medicine; Visit Provider Family Medicine
DX: R05.9 Cough, unspecified (principal); Z87.09 Personal history of other diseases of the respiratory system
CPT/HCPCS: 71046